=== PATIENT | male | born 1970 | race Hispanic/Latino ===

== ENCOUNTER 2016-10-17 11:38 | Emergency (ER) | payer OTHER ==
[~2016-10-17] VITALS: Ht 172.7 cm; Wt 70.3 kg
[~2016-10-17 11:38] MED LIST: AMITRIPTYLINE H10 M2 PO; BYSTOLIC 5MG5 MG PO; CHLORDIAZEPOXID25 M3 PO; COZAAR 100MG T100 MG PO; DICYCLOMINE HCL10 M1 PO; VITAMIN D250000 UNIT PO
[2016-10-17] MEDS ORDERED: NYSTATIN100000 UNI PO (12:18)
[2016-10-17] MEDS ORDERED: POTASSIUM CITR10 ME1 PO (12:19)
[2016-10-17] MEDS ORDERED: ALLOPURINOL300 M1 PO (12:20)
--- NOTE | 2016-10-17 12:35 | ED GENERAL ADULT ---
History of Present Illness General Chief Complaint: Fever Stated Complaint: THRUSH NOT GETTING BETTER/FEVER Source: patient Exam Limitations: no limitations Vital Signs & Intake/Output Vital Signs & Intake/Output Vital Signs Date Time Temp Pulse Resp B/P Pulse O2 O2 Flow FiO2 Ox Delivery Rate 10/17 1449 98.7 92 18 98/50 98 Room Air Room Air 10/17 1235 97.8 99 16 100/54 96 Room Air Allergies Coded Allergies: amoxicillin (From AUGMENTIN) (Intermediate, RASH, THRUSH 10/17/16) clavulanic acid (From AUGMENTIN) (Intermediate, RASH, THRUSH 10/17/16) Reconcile Medications Allopurinol 300 MG TABLET 1 TAB PO DAILY KIDNEY STONES (Reported) Amitriptyline HCl 10 MG TABLET 1 TAB PO QPM UNKNOWN (Reported) Dicyclomine HCl 10 MG CAPSULE 1 CAP PO DAILY PRN CRAMPS (Reported) Ergocalciferol (Vitamin D2) (Vitamin D2) 50,000 UNIT CAPSULE 1 CAP PO Q30D SUPPLEMENT (Reported) Hydrocodone/Acetaminophen (Vicodin 5-300 MG Tablet) 5 MG-300 MG TABLET 1 TAB PO Q4-6HR PRN PAIN Losartan (Cozaar) 100 MG TAB 100 MG PO DAILY HIGH BLOOD PRESSURE (Reported) Nebivolol (Bystolic) 5 MG TAB 5 MG PO DAILY HIGH BLOOD PRESSURE (Reported) Nystatin 100,000 UNIT/ML ORAL.SUSP 5 ML PO 4 TIMES/DAY THRUSH (Reported) Potassium Citrate (Potassium Citrate ER) 10 MEQ (1,080 MG) TABLET.ER 1 TAB PO TID SUPPLEMENT (Reported) Triage Note: STATES HE WAS GIVEN ABX FOR A SINUS INFECTION LAST WEEK. HAD ALLERGIC REACTION TO MOUTH FROM AMOXICILLIN (THRUSH) 4 DAYS AGO, SAW PMD YESTERDAY AND WAS PUT ON NYSTATIN SUSP. Triage Nurses Notes Reviewed? yes Onset: Gradual Duration: day(s):, worse persistent since (4 DAYS) Timing: no prior history Injury Environment: home Severity: moderate Severity Numbers: 8 No Modifying Factors: none HPI: Patient is a 46-year-old male with history of irritable bowel syndrome presenting to the emergency Department chief complaint of rash that is not improving with nystatin mouthwash. He reports that he just started it yesterday. He was put on amoxicillin last week for a sinus infection and developing symptoms over the past 4 days. He says primary again yesterday who ordered him the nystatin mouthwash. Patient also reporting a 3 or 4 month history of night sweats where he wakes up several times a night soaking wet. Denies any change in weight. Denies any coughing. He did mention this to the primary care physician who then ordered blood work and a chest x-ray which everything came back okay. Patient denying any abdominal pain. Denies any history of IV drug abuse or homosexual relations. Patient concerned about HIV secondary to a comment that one of his old girlfriend said made prior to having unprotected sex. He would like to be tested for HIV. Patient up-to-date with all immunizations. Denies any nausea or vomiting. He does report the tach fevers nightly but no chills. Denies taking his temperature. No chest pain or shortness of breath. He does report that he traveled to [place] over the summer but was fine surrounding that time period. Past History Travel History Traveled to [place] past 21 day No Medical History Any Pertinent Medical History? 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 No Review of Systems Review of Systems Constitutional: Reports: fever, malaise. Comments Review of systems: See HPI, All other systems negative. Constitutional, no weight loss HEENT: No visual changes Cardiovascular: No chest pain ,palpitation , orthopnea or ankle swelling Skin, no jaundice no rashes Respiratory: No dyspnea cough sputum or hemoptysis GI: No nausea no vomiting : No dysuria No hematuria Muscle skeletal: no back pain, no neck pain, Neurologic: No numbness no confusion NO HENRIQUEZ Psych: No stress anxiety or depression,. Heme/endocrine: No bruising no bleeding no polyuria or polydipsia Immunology: No splenectomy or history of AIDS Physical Exam Physical Exam General Appearance: well developed/nourished, no apparent distress, alert, awake , comfortable Comments: Well-developed well-nourished person in no acute distress HEENT: extraocular motion intact, no nystagmus. Pupils equally round and reactive to light and accommodation. Nose is atraumatic. External auditory canal and Tympanic membranes clear. Pharynx is erythematous with the tongue being blotchy and white, able to remove the white discharge with a tongue depressor. Neck: Supple, cervical lymphadenopathy noted bilaterally, nontender, slightly enlarged, mobile, normal range of motion without pain or tenderness Back: Nontender Cardiovascular: Regular rate and rhythms no murmurs rubs or gallops, normal JVP Respiratory: Chest nontender. No respiratory distress.breath sounds clear to auscultation bilaterally Extremity: No edema Neuro: Alert oriented x3, motor sensory normal, cranial nerves II through XII grossly intact. Skin: No appreciable rash on exposed skin, skin is warm and mildly diaphoretic noted on the face. Psych: Mood and affect is normal, memory and judgment is normal. Core Measures ACS in differential dx? No CVA/TIA Diagnosis: No Severe Sepsis Present: No Septic Shock Present: No Progress Differential Diagnoses I considered the following diagnoses in my evaluation of the patient: Thrush, TB, pneumonia, viral syndrome, dehydration, electrolyte abnormality, HIV, hepatitis, autoimmune process Plan of Care: Orders Procedure Date/time Status URINALYSIS 10/17 1342 Complete BLOOD CULTURE 10/17 1252 Active HIV (Reflex to HIVCQ) 10/17 1252 Complete HEPATITIS PANEL 10/17 1252 Complete COMPREHENSIVE METABOLIC PANEL 10/17 1252 Complete CBC WITHOUT DIFFERENTIAL 10/17 1252 Complete Laboratory Tests 10/17/16 1342: Urine Color YEL, Urine Clarity HAZY H, Urine pH 6.5, Ur Specific [place] 1.010, Urine Protein TRACE H, Urine Ketones TRACE H, Urine Nitrite NEG, Urine Bilirubin NEG, Urine Urobilinogen 0.2, Ur Leukocyte Esterase NEG, Ur Microscopic SEDIMENT EXAMINED, Urine RBC 1-3, Urine WBC RARE, Ur Epithelial Cells FEW, Granular Casts 1-3 H, Urine Mucus FEW, Urine Hemoglobin NEG, Urine Glucose NEG 10/17/16 1311: Anion Gap 14, Estimated GFR 59 L, BUN/Creatinine Ratio 16.2, Glucose 90, Calcium 9.7, Total Bilirubin 1.4 H, AST 26, ALT 60, Alkaline Phosphatase 69, Total Protein 8.0, Albumin 4.7, Globulin 3.3, Albumin/Globulin Ratio 1.4, CBC w Diff MAN DIFF ORDERED, RBC 4.82, MCV 89.8, MCH 30.5, RDW 13.6, MPV 8.7, Gran % 3.5 L, Lymphocytes % 33.7, Monocytes % 60.0 H, Eosinophils % 1.2, Basophils % 1.6, Absolute Granulocytes 0.1 L, Absolute Lymphocytes 1.2, Absolute Monocytes 2.1 H, Absolute Eosinophils 0, Absolute Basophils 0.1, Platelet Estimate VERIFIED BY SMEAR, Normocytic RBCs VERIFIED, Normochromic RBCs VERIFIED, PUBS MCHC 34.0, Hepatitis A IgM Ab NONREACTIVE, Hep Bs Antigen NONREACTIVE, Hep B Core IgM Ab Conf NONREACTIVE, Hepatitis C Antibody NONREACTIVE, HIV 1&2 Ab Western Blot NONREACTIVE Microbiology 10/17 1329 BLOOD: Blood Culture - RECD 10/17 1311 BLOOD: Blood Culture - RECD Diagnostic Imaging: Viewed by Me: Radiology Read. Discussed w/RAD: Radiology Read. CXR Impression: no acute abnormality, no infiltrates, normal size heart, normal mediastinum Initial ED EKG: none Comments: 10/17/2016 2:13:00 PM patient given IV fluids on arrival. Patient is well appearing except for extensive thrush. 10/17/2016 3:13:17 PM patient feeling improved after IV fluids. Blood work does show slight dehydration. Educated on increasing fluids and will follow up with PCP. He will continue nystatin mouthwash. Prescribed pain medication to help with his pain in his mouth. Chest x-ray negative. Departure Departure Time of Disposition: 1505 Disposition: HOME OR SELF CARE Condition: Stable Clinical Impression Primary Impression: Thrush Secondary Impressions: Dehydration Referrals: AMANDA ENRIQUEZ,MAYI Torres (PCP/Family) Additional Instructions: Follow-up with your primary care physician. Labs did show that you're slightly dehydrated. Make sure they recheck your creatinine level. Increase fluids. Continue using nystatin mouthwash as previously prescribed. For severe pain take Vicodin as prescribed. Return for worsening symptoms or concerns. Departure Forms: Customer Survey General Discharge Information Prescriptions: Current Visit Scripts Hydrocodone/Acetaminophen (Vicodin 5-300 MG Tablet) 1 TAB PO Q4-6HR PRN PAIN #12 TAB Critical Care Note Critical Care Note Critical Care Time: non-applicable
[2016-10-17 13:29] LABS: ABSOLUTE BASOPHIL COUNT 0.1 /CUMM (0.0-0.2); ABSOLUTE EOSINOPHIL COUNT 0 /CUMM (0.0-0.7); ABSOLUTE GRANULOCYTE CT 0.1 /CUMM (1.4-6.5); ABSOLUTE LYMPH COUNT 1.2 /CUMM (1.2-3.4); ABSOLUTE MONOCYTE COUNT 2.1 /CUMM (0.10-0.60); BASOPHIL % 1.6 % (0.0-2.0); EOSINOPHIL % 1.2 % (0-5); HEMATOCRIT 43.2 % (42-52); MEAN CORPUSCULAR HGB 30.5 PG (27.0-31.0); MEAN CORPUSCULAR VOLUME 89.8 FL (80.0-94.0); MEAN PLATELET VOLUME 8.7 FL (7.4-10.4); PLATELET COUNT 189 /CUMM (130-400); RBC DISTRIBUTION WIDTH 13.6 % (11.5-14.5); RED BLOOD CELL CT 4.82 /CUMM (4.70-6.10); WHITE BLOOD CELL COUNT 3.5 /CUMM (4.8-10.8)
[2016-10-17 13:33] LABS: GRANULOCYTE % 3.5 % (42.2-75.2)
--- NOTE | 2016-10-17 14:07 | RADIOLOGY REPORT ---
EXAMINATION: XR CHEST CLINICAL INDICATION: Night sweats, rule out lesion TECHNIQUE: PA and lateral views. COMPARISON: None FINDINGS: The lungs are clear with no focal consolidation. No evidence of pneumothorax, pulmonary edema, or pleural effusions. The cardiomediastinal silhouette is unremarkable. No acute osseous findings. Scattered degenerative changes are noted in the spine. IMPRESSION: No acute cardiopulmonary findings.
[2016-10-17 14:49] VITALS: BP 98/50
[2016-10-17] MEDS ORDERED: VICODIN 5-3001 EACH PO ×2 (15:08→15:11)
== END 2016-10-17 15:20 ==
LOC: ERH 11:38
PROVIDERS: Physician Assistant
DX: B37.0 Candidal stomatitis (principal)
CPT/HCPCS: 81001; 87040; 87389; 96361; 96374; J0131; J1885